=== PATIENT | female | born 1965 | race Caucasian/White ===

== ENCOUNTER 2017-06-05 21:17 | Inpatient (IN) | payer BC ==
[~2017-06-05] VITALS: Ht 162.6 cm; Wt 120.2 kg
[2017-06-06] VITALS (8 sets, daily range): BP systolic 108–153; BP diastolic 55–80
--- NOTE | 2017-06-06 00:23 | Diagnostic Imaging Report ---
FINGER RIGHT HISTORY: Pain COMPARISON: None FINDINGS: Bones: No displaced fracture. Osseous alignment is within normal limits. Joints: The joint spaces are well-maintained. Soft tissues: 4 mm hyperdensity overlying the thenar eminence suspicious for radiopaque foreign body. IMPRESSION: 1. No acute osseous abnormality. 2. Suspected radiopaque foreign body. Signed by: Dr. Clement Jamil M.D. on 06/06/2017 12:19 AM
[2017-06-06] MEDS ORDERED: SODIUM CHLORIDE 0.9% 1000ML 1,000 ML IV STA (01:45)
[2017-06-06] MEDS ORDERED: VANCOMYCIN 1GM/NS 250 ML 250 ML IV STA (01:45)
[2017-06-06] MEDS ORDERED: ONDANSETRON HCL INJ 2 MG/ML VIAL IV STA (01:45)
[2017-06-06] MEDS ORDERED: MORPHINE SULFATE 2 MG/ML SYR IV STA (01:45)
[2017-06-06] MEDS ORDERED: MORPHINE SULFATE 2 MG/ML SYR IV PRN ×2 (02:15→13:15)
[2017-06-06] MEDS ORDERED: ONDANSETRON HCL INJ 2 MG/ML VIAL IV PRN ×2 (02:15→13:15)
--- OUTSIDE RECORDS SUMMARY | 2017-06-06 02:48 | XMS REPORT ---
Author Author [facility] Address Unknown Phone Unavailable Care Team Providers Care Loom Operator Apprentice Name Role Phone PRADEEP PILLAI Unavailable Unavailable Problems This patient has no known problems. Allergies, Adverse Reactions, Alerts This patient has no known allergies or adverse reactions. Medications This patient has no known medications. Results Test Description Test Time Test Comments Text Results Atomic Results Result Comments FINGER RIGHT [place] [address] Patient Name: ALYSHA MYRICK MR #: [id number] : 1965 Age/Sex: 52/F Req #: [id number] Adm Physician: Ordered by: PRADEEP PILLAI MD Report #: [id number] Location: ER Room/Bed: Procedure: [id number] DX/FINGER RIGHT Exam Date: 06/05/17 Exam Time: 2306 REPORT STATUS: Signed FINGER RIGHT HISTORY: Pain COMPARISON : None FINDINGS: Bones: No displaced fracture. Osseous alignment is within normal limits. Joints: The joint spaces are well- maintained. Soft tissues: 4 mm hyperdensity overlying the thenar eminence suspicious for radiopaque foreign body. IMPRESSION: 1. No acute osseous abnormality. 2. Suspected radiopaque foreign body. Signed by: Dr. Clement Jamil M.D. on 06/06/2017 12:19 AM Dictated By: CLEMENT SALAZAR MD COPY TO: PRADEEP PILLAI MD
[2017-06-06] MEDS: SODIUM CHLORIDE 0.9% 1000ML 1,000 ML IV SCH ×4 (02:49→20:28)
[2017-06-06 03:11] LABS: BASOPHILS # (AUTO) 0.1 (0.0-0.1); BASOPHILS % 0.8 % (0.0-1.0); EOSINOPHILS # (AUTO) 0.3 (0.0-0.4); EOSINOPHILS % 3.5 % (0.0-6.0); HEMATOCRIT 42.9 % (34.2-44.1); HEMOGLOBIN 14.3 g/dL (12.0-16.0); LYMPHOCYTES # (AUTO) 2.9 (1.0-3.2); LYMPHOCYTES % 29.6 % (18.0-39.1); MEAN CORPUSCULAR HEMOGLOBIN 28.4 pg (28-32); MEAN CORPUSCULAR HGB CONC 33.3 g/dL (31-35); MEAN CORPUSCULAR VOLUME 85.3 fL (81-99); MONOCYTES # (AUTO) 0.8 (0.2-0.8); MONOCYTES % 8.6 % (4.4-11.3); NEUTROPHILS # (AUTO) 5.6 (2.1-6.9); NEUTROPHILS % 57.3 % (38.7-80.0); PLATELET COUNT 345 x10e3/uL (140-360); RED BLOOD COUNT 5.03 x10e6/uL (3.6-5.1); RED CELL DISTRIBUTION WIDTH 13.4 % (11.7-14.4)
[2017-06-06 03:30] LABS: ALANINE AMINOTRANSFERASE 13 IU/L (0-55); ALKALINE PHOSPHATASE 43 IU/L (40-150); BLOOD UREA NITROGEN 13 mg/dL (7-26); BUN/CREATININE RATIO 14 (6-25); CALCIUM 10.4 mg/dL (8.4-10.2); CARBON DIOXIDE 25 mmol/L (22-29); CHLORIDE 104 mmol/L (98-107); CREATININE, SERUM 0.92 mg/dL (0.57-1.11); EST GLOMERULAR FILTRATION RATE > 60 ML/MIN (60-); GLUCOSE 99 mg/dL (74-118); MAGNESIUM 1.9 MG/DL (1.3-2.1); SODIUM 140 mmol/L (136-145)
[2017-06-06] MEDS: PIPER-TAZ 3.375 GM 50 ML IV SCH ×4 (04:15→20:28)
[2017-06-06] MEDS ORDERED: VANCOMYCIN 1GM/NS 250 ML 250 ML IV SCH ×2 (05:15→13:15)
--- NOTE | 2017-06-06 05:27 | History and Physical ---
PRIMARY CARE PHYSICIAN: Dr. Nazario Osorio CHIEF COMPLAINT: Dog bite. HISTORY OF PRESENT ILLNESS: This is a 52-year-old woman who was attempting to feed her blind dog when it bit her right thumb. The same day she went to the urgent care facility in [place]. She was given Augmentin and tetanus shot. Went home but the thumb seemed to get worse with increased swelling and redness. Therefore, she came to the hospital. Here she has been started on vancomycin and Zosyn, and admitted for further evaluation and management. Denies any fever, chills or sweats. PAST MEDICAL HISTORY: Heart murmur. PAST SURGICAL HISTORY: , cholecystectomy. ALLERGIES: PER ELECTRONIC MEDICAL RECORDS. FAMILY HISTORY/SOCIAL HISTORY: Patient is . She has 1 child. No alcohol, illicits or cigarettes. MEDICATIONS: Per electronic medical record. REVIEW OF SYSTEMS: Denies any dizziness or chest pain. PHYSICAL EXAMINATION VITAL SIGNS: Reviewed. GENERAL: A tired-appearing woman resting in bed. HEENT: Anicteric. CARDIOVASCULAR: Normal S1 and S2. LUNGS: Moderate breath sounds. ABDOMEN: Soft, nontender and nondistended. EXTREMITIES: No edema or calf tenderness of the lower extremities. The right thumb has some edema, tenderness, induration, and there is mild erythema. There is no drainage or discharge. There is no visible teeth acuña. SKIN: Dry. PSYCHIATRIC: Normal affect. LABS: Reviewed. MEDICATIONS: Reviewed. ASSESSMENT AND PLAN: This is a 52-year-old woman with: 1. Right thumb cellulitis secondary to dog bite: Continue intravenous antibiotics. Surgery has been consulted for evaluation. 2. Hypocalcemia: Rehydration and reassess. 3. Right thumb pain: Use p.r.n. pain medications. 4. Morbid obesity: Screen for diabetes. Obtain lipid panel. 5. Prophylaxis: Use sequential compression devices. 6. Disposition: Intravenous antibiotics. Follow up surgical recommendations. Job#: [id number] KHADAR
[2017-06-06 05:29] LABS: CHOL/HDL RATIO 4.2 (3.0-3.6)
[2017-06-06] MEDS ORDERED: LIDOCAINE HCL 1% 30ML-PF VIAL ONE (09:06)
[2017-06-06] MEDS ORDERED: BACITRACIN 50,000 UNIT VIAL ONE (09:07)
[2017-06-06] MEDS ORDERED: BUPIVACAINE HCL 0.5% INJ 30 ML VIAL INJ ONE (09:07)
[2017-06-06] MEDS ORDERED: MUPIROCIN 2% OINT 22 GM TUBE ONE (09:07)
--- NOTE | 2017-06-06 11:40 | Consultation ---
DATE OF CONSULTATION: June 06, 2017 HAND SURGERY EMERGENCY ROOM CONSULTATION The consultation is requested of hand surgery for a dog bite, right thumb. CHIEF COMPLAINT: The patient is a 52-year-old, right hand dominant female who states that approximately 3 days ago she sustained a dog bite from her dog on the right thumb. She states that 1 tooth pierced the nail plate, and the other tooth went on the volar surface of the thumb. She was placed on oral antibiotics; however, the pain and swelling persisted. She came to the ER last night and was admitted. Consultation is now requested this a.m. PHYSICAL EXAMINATION: On pertinent physical exam, the patient is afebrile. The vital signs are stable. The distal phalanx of the right thumb is quite tensely swollen. There is erythema on the volar aspect of the thumb distally. There appears to be a disruption of the nail plate with purulent exudate draining from its surface. There is no lymphangitic spread or erythema of the infectious process past the IP joint to the right thumb. IMPRESSION: Dog bite, right thumb, probable subungual purulent abscess and felon. PLAN: The patient will be taken to the OR this morning for decompression of the abscess. Thank you very much for allowing me to participate in the care of your patient. Job#: [id number]
--- NOTE | 2017-06-06 13:12 | Operative Report ---
DATE OF PROCEDURE: June 06, 2017 PREOPERATIVE DIAGNOSES: Dog bite, right thumb, with: 1. Subungual purulent abscess. 2. Felon. POSTOPERATIVE DIAGNOSES: Dog bite, right thumb, with: 1. Subungual purulent abscess. 2. Felon. PROCEDURES 1. Drainage of subungual abscess. 2. Drainage of felon, right thumb. ANESTHESIA: MAC/local. HISTORY: The patient is a 52-year-old, right hand dominant female with a dog bite to the right thumb approximately 72 hours ago. The infectious process has persisted despite oral antibiotics and has purulent exudate draining from beneath the nail plate. Risks, benefits and alternatives of treatment were discussed with the patient and her . They are prepared to undergo the procedures outlined. DETAILS OF PROCEDURE: Patient was marked preoperatively in the holding area. She was brought to the operating theater. After the induction of adequate IV sedation, she was prepped and draped in a supine position, and a time out was performed. A digital block was placed around the base of the right thumb. Utilizing a 50:50 mixture of 1% Xylocaine with 1/2 percent plain Marcaine, a total of 7 mL was used. At this point, the right upper extremity was elevated for approximately 3 minutes, and a [place] drain was then placed around the base of the right thumb. The nail plate was elevated off of the nail bed with a [place] elevator, and purulent exudate was encountered. This was cultured both aerobically and anaerobically. The distal half of the nail was then excised and the abscess infectious process extended through the nail bed into the substance of the distal phalanx. This was curetted until all the infected, devitalized tissue had been removed. The wound was then copiously irrigated with bacteriostatic saline containing antibiotic, and then Bactroban ointment, Xeroform gauze and a sterile dressing were applied. The [place] drain was removed. The finger pinked up nicely, and the patient was returned to the recovery room in satisfactory condition and then admitted for further care and treatment. Job#: [id number]
[2017-06-06] MEDS ORDERED: ONDANSETRON HCL INJ 2 MG/ML VIAL ONE (13:29)
[2017-06-06] MEDS ORDERED: LIDOCAINE HCL 2% LOCAL INJ 5 ML SDV VIAL INJ ONE (13:29)
[2017-06-06] MEDS ORDERED: PROPOFOL IV EMULSION 10 MG/ML 20 ML VIAL ONE (13:29)
[2017-06-06] MEDS ORDERED: FENTANYL CITRATE/PF 100MCG/2 ML INJ ONE (14:45)
[2017-06-06] MEDS ORDERED: MIDAZOLAM HCL 2 MG/2 ML VIAL ONE (14:45)
[2017-06-07 00:46] VITALS: BP 146/70
[2017-06-07] MEDS: PIPER-TAZ 3.375 GM 50 ML IV SCH ×2 (02:32→08:48)
[2017-06-07] MEDS ORDERED: VANCOMYCIN 1GM/NS 250 ML 250 ML IV SCH ×2 (03:00)
[2017-06-07 04:00] VITALS: BP 129/60
[2017-06-07] MEDS: SODIUM CHLORIDE 0.9% 1000ML 1,000 ML IV SCH (05:15)
[2017-06-07] MEDS ORDERED: NEOMYCIN/POLYMYX/BACITR OINT 0.9 GM PKT ONE (07:34)
[2017-06-07 08:20] VITALS: BP 128/66
[2017-06-07 08:53] VITALS: BP 128/66
[2017-06-07] MEDS ORDERED: AUGMENTIN 875-1 EACH PO (09:08)
== END 2017-06-07 12:13 | disposition home or self-care (01) | DRG 580 ==
LOC: ER 21:17 → UNDOADMIN 06-06 02:45 → ERHOLD 06-06 02:45 → OR 06-06 11:09 → MED/SURG 06-06 11:12
PROVIDERS: ADMIT Internal Medicine; ATTEND Internal Medicine
PROC: 0PB Upper Bones, Excision (ICD-10-PCS; 2017-06-06)
PROC: 0HDQXZZ Extraction of Finger Nail, External Approach (ICD-10-PCS; principal; 2017-06-06 09:00)
DX: L03.011 Cellulitis of right finger (principal); Z68.42 Body mass index [BMI] 45.0-49.9, adult; S61.151A Open bite of right thumb with damage to nail, initial encounter; W54.0XXA Bitten by dog, initial encounter; Y93.K9 Activity, other involving animal care; Y92.009 Unspecified place in unspecified non-institutional (private) residence as the place of occurrence of the external cause; E83.52 Hypercalcemia; E66.01 Morbid (severe) obesity due to excess calories
CPT/HCPCS: 36415; 80053; 80061; 83036; 83735; 84702; 85025; 87040; 87071; 87075; 87205; J2001; J2250; J2270; J2405; J2543; J3370; J7030